=== PATIENT | male | born 1970 | race Caucasian/White ===

== ENCOUNTER 2017-03-21 12:39 | Emergency (ER) | payer MEDICAID ==
[~2017-03-21] VITALS: Ht 182.9 cm; Wt 112.0 kg
[~2017-03-21 12:39] MED LIST: IBUP-1573 PO; NO HOME MEDS
[2017-03-21] MEDS ORDERED: SULF1TAB49 PO (13:02)
[2017-03-21 13:10] VITALS: BP 135/79
[2017-03-22] MEDS ORDERED: CLIN150C2 PO (17:14)
[2017-03-22] MEDS ORDERED: HYDR-569 PO (17:14)
== END 2017-03-21 13:12 | disposition home or self-care (01) ==
LOC: ER 12:40
DX: L02.411 Cutaneous abscess of right axilla (principal); F15.10 Other stimulant abuse, uncomplicated
CPT/HCPCS: 99283

== ENCOUNTER 2017-06-27 13:31 | Emergency (ER) | payer MEDICAID ==
[~2017-06-27] VITALS: Ht 182.9 cm; Wt 99.0 kg
[~2017-06-27 13:31] MED LIST changes: +HYDR-569 PO
[2017-06-27] MEDS ORDERED: ipratropium/albuterol 3ml nebule NEB ONE (14:00)
[2017-06-27] MEDS ORDERED: ADV50250 IH (15:19)
[2017-06-27] MEDS ORDERED: ALBU8.5H8 IH (15:19)
[2017-06-27] MEDS ORDERED: METH4TAB81 PO (15:19)
[2017-06-27 15:28] VITALS: BP 144/80
== END 2017-06-27 15:29 | disposition home or self-care (01) ==
LOC: ER 13:31
DX: J45.909 Unspecified asthma, uncomplicated (principal); F15.10 Other stimulant abuse, uncomplicated
CPT/HCPCS: 94640; 94760; 99283

== ENCOUNTER 2017-07-13 12:37 | Emergency (ER) | payer MEDICAID ==
[~2017-07-13] VITALS: Ht 182.9 cm; Wt 94.3 kg
[~2017-07-13 12:37] MED LIST changes: +ADV50250 IH; +ALBU8.5H8 IH; +BACDS PO; +CEPH-572 PO; +METH4TAB81 PO
[2017-07-13 13:06] VITALS: BP 117/79
[2017-07-13] MEDS ORDERED: LIDOcaine 1.5% w/epinephrine 1:200,000 5ml ampul IJ ONE (15:10)
[2017-07-13] MEDS ORDERED: DOXY100C43 PO (16:08)
[2017-07-13] MEDS ORDERED: HYDR-3965 PO (16:08)
[2017-07-13] MEDS ORDERED: IBUP-1986 PO (16:08)
[2017-07-13] MEDS ORDERED: ibuprofen tablet 400 MG TABLET PO ONE (16:15)
[2017-07-13] MEDS ORDERED: HYDROcodone/acetaminophen 5mg/325mg tablet PO ONE (16:25)
== END 2017-07-13 16:48 | disposition home or self-care (01) ==
LOC: ER 12:38
DX: T78.40XA Allergy, unspecified, initial encounter (principal); L02.411 Cutaneous abscess of right axilla; X58.XXXA Exposure to other specified factors, initial encounter
CPT/HCPCS: 10060; 87070; 87077; 87186; 99284; A6253; A6255; A6449; J3490

== ENCOUNTER 2023-03-15 20:35 | Emergency (ER) | payer MEDICAID ==
[~2023-03-15 20:35] MED LIST changes: -ADV50250 IH; +ALBU8.5H17 IH; -ALBU8.5H8 IH; -BACDS PO; +HYDR-4383 PO; -HYDR-569 PO; +IBUP-1986 PO
[2023-03-15 20:47] VITALS: BP 219/127; PULSE 88; TEMP 98.1; O2SAT 96
[2023-03-15 22:14] VITALS: RESP 18
== END 2023-03-15 22:18 | disposition left against medical advice (07) ==
LOC: ER 20:35
DX: R51.9 Headache, unspecified (principal); Z53.21 Procedure and treatment not carried out due to patient leaving prior to being seen by health care provider
CPT/HCPCS: 93005; 99281

== ENCOUNTER 2023-03-31 14:30 | Emergency (ER) | payer MEDICAID ==
[~2023-03-31] VITALS: Ht 182.9 cm; Wt 104.5 kg
[2023-03-31 15:00] VITALS: BP 125/49; PULSE 68; RESP 18; TEMP 98; O2SAT 98
== END 2023-03-31 15:33 ==
LOC: ER 14:30
DX: Z02.89 Encounter for other administrative examinations (principal); I10 Essential (primary) hypertension; J45.909 Unspecified asthma, uncomplicated; F31.9 Bipolar disorder, unspecified; F15.90 Other stimulant use, unspecified, uncomplicated; Z59.00 Homelessness unspecified; Z56.0 Unemployment, unspecified; Z79.899 Other long term (current) drug therapy; Z98.890 Other specified postprocedural states
CPT/HCPCS: 99283